=== PATIENT | male | born 1965 | race Caucasian/White ===

== ENCOUNTER 2021-01-22 18:39 | Emergency (ER) | payer MEDICARE, OTHER | END 2021-01-22 21:00 | disposition home or self-care (01) | LOC: ER1 18:39 | DX: R51.9 Headache, unspecified (principal); F17.200 Nicotine dependence, unspecified, uncomplicated; E78.5 Hyperlipidemia, unspecified | CPT/HCPCS: 70450; 99284 ==

== ENCOUNTER 2021-11-14 02:32 | Emergency (ER) | payer MEDICARE ==
[2021-11-14 07:01] LABS: HEMOGLOBIN 13.4 gm/dl (14.0-17.5); RED BLOOD COUNT 4.62 M/UL (4.20-5.50); WHITE BLOOD COUNT 11.1 K/UL (4.5-11.0)
[2021-11-14 07:33] LABS: BUN/CREATININE RATIO 19 (0-10)
[2021-11-14] MEDS ORDERED: MONODOX100 MG PO (08:54)
[2021-11-14] MEDS ORDERED: IBUPROFEN600 MG PO (08:54)
== END 2021-11-14 09:30 | disposition home or self-care (01) ==
LOC: ER1 02:32
PROVIDERS: Nurse Practitioner
DX: N49.2 Inflammatory disorders of scrotum (principal); Z87.442 Personal history of urinary calculi
CPT/HCPCS: 76870; 80053; 81001; 85025; 96372; 99284; J0696; J1885